=== PATIENT | female | born 1965 | race Caucasian/White ===

== ENCOUNTER 2017-10-17 11:10 | Emergency (ER) | payer MEDICARE ==
[~2017-10-17] VITALS: Ht 157.5 cm; Wt 66.2 kg
[~2017-10-17 11:10] MED LIST: BACTRIM DS1 TAB PO; CEPHALEXIN500 MG PO; CLONAZEPAM1 MG PO; FLONASE NASAL50 MCG; HYDROCORTISO2.51 EX; HYDROMORPHONE HC8 MG PO; METHADONE10 M1 PO; NEURONTIN300 MG PO; PAROXETINE10 MG PO; TIZANIDINE HCL4 M1 PO; TRAZODONE150 MG PO
[2017-10-17] MEDS ORDERED: MORPHINE SUL15 MG PO (11:48)
[2017-10-17] MEDS ORDERED: TOPAMAX25 MG PO (11:52)
[2017-10-17] MEDS ORDERED: CITALOPRAM10 MG PO (11:53)
[2017-10-17] MEDS ORDERED: PRILOSEC20 MG PO (11:54)
[2017-10-17] MEDS ORDERED: HYDROXYZ HCL25 MG PO (11:54)
[2017-10-17] MEDS ORDERED: CLEOCIN300 MG PO ×2 (12:48→13:00)
[2017-10-17] MEDS ORDERED: TORADOL PO ×2 (12:48→13:00)
[2017-10-17] MEDS ORDERED: LISINOPRIL20 MG PO (14:44)
[2017-10-17 14:52] VITALS: BP 152/113
== END 2017-10-17 14:51 | disposition home or self-care (01) ==
LOC: ED 11:10
DX: H92.01 Otalgia, right ear (principal); M79.7 Fibromyalgia; R03.0 Elevated blood-pressure reading, without diagnosis of hypertension

== ENCOUNTER 2017-11-12 01:57 | Emergency (ER) | payer MEDICARE ==
[~2017-11-12 01:57] MED LIST changes: +CITALOPRAM10 MG PO; +CLEOCIN300 MG PO; +HYDROXYZ HCL25 MG PO; +LISINOPRIL20 MG PO; +MORPHINE SUL15 MG PO; +PRILOSEC20 MG PO; +TOPAMAX25 MG PO; +TORADOL PO
== END 2017-11-12 02:00 | disposition left against medical advice (07) ==
LOC: ED 01:57 → LWOBS 02:00
DX: Z91.19 Patient's noncompliance with other medical treatment and regimen (principal)